=== PATIENT | male | born 1935 | race Caucasian/White ===

== ENCOUNTER 2016-03-31 10:35 | Emergency (ER) | payer BC ==
[~2016-03-31] VITALS: Ht 172.7 cm; Wt 81.3 kg
[~2016-03-31 10:35] MED LIST: AMIO200T4 PO; ATOR-24 PO; CHOL20009 PO; DIPH25CA65 PO; FRS/40 PO; MELA1TAB5 PO; NITRSPR6 SL; SIME1CAP9 PO; TPRSR/25 PO; WARF1TAB6 PO
[2016-03-31 10:46] VITALS: TEMP 36.4; Ht 172.7 cm; Wt 81.3 kg
[2016-03-31] MEDS ORDERED: TRAZ50TA35 PO (11:11)
[2016-03-31] MEDS ORDERED: NTRSLP4 SL (11:11)
--- NOTE | 2016-03-31 11:24 | EMERGENCY ROOM VISIT NOTE ---
History Report prepared by Stefano: Cayden Webster Under the Supervision of: Dr. Alberto Drew M.D. First contact with patient: 11:10 Chief Complaint: CARDIAC ASSESSMENT Stated Complaint: CARDIAC ASSESSMENT Nursing Triage Summary: Change in EKG per EMS. Denies chest pain. Denies shortness of breath. Denies nausea. History of Present Illness The patient is a 80 year old male who presents to the Emergency Room with complaints of acute EKG changes that were detected earlier today. The patient was seeing Dr. Tirado today for a routine check up. He was referred to the ED for acute EKG changes. The patient is otherwise asymptomatic. He denies chest pain or shortness of breath. He occasionally has left rib pain which he believes is musculoskeletal in nature. The patient had mitral valve surgery approximately 6 years ago at [facility]. He also has a history of atrial fibrillation and a mild stroke. The patient is on Coumadin. The patient follows up with Dr. Sherman, Dramatic Agent. The patient notes that his left leg is always more swollen than the right secondary to an infection. He uses Lasix as needed. He has an echocardiogram scheduled for April 25. Source of History: patient Onset: today Position: other (cardio) Quality: other (EKG changes) Timing: other (acute) Associated Symptoms: No SOB, No chest pain Review of Systems All systems have been listed, reviewed, and are negative other than those previously mentioned. Please see Additional Medical History Sheet. Past Medical & Surgical Medical Problems: (1) A-fib (2) TIA (transient ischemic attack) Surgical Problems: (1) H/O mitral valve repair Family History Patient reports no known family medical history. Social History Smoking Status: Never Smoker Current/Historical Medications Scheduled Amiodarone Hcl (Cordarone), 200 MG PO BID Atorvastatin (Lipitor), 40 MG PO HS Cholecalciferol (Vitamin D), 1,000 INTER.UNIT PO DAILY Melatonin (Kp Melatonin), 5 MG PO HS Metoprolol Succinate (Metoprolol Succinate ER), 25 MG PO QAM Trazodone Hcl (Trazodone), 25 MG PO HS Warfarin Sod (Jantoven), 1 MG PO 3XWK Warfarin Sod (Jantoven), 2 MG PO 4XWK Scheduled PRN Diphenhydramine Hcl (Benadryl Allergy), 25 MG PO HS PRN for Insomnia Furosemide (Lasix), Unknown Dose PO DAILY PRN for EDEMA Simethicone (Gas Relief), Unknown Dose PO UD PRN for GI Upset Miscellaneous Medications Nitroglycerin (Nitrostat), 0.4 MG SL Allergies Coded Allergies: Lisinopril (Verified Adverse Reaction, Mild, PERSISTENT COUGH, 03/31/16) Physical Exam Vital Signs Date Time Temp Pulse Resp B/P Pulse Ox O2 Delivery O2 Flow Rate FiO2 03/31/16 13:07 80 20 135/95 97 03/31/16 12:30 72 20 118/82 95 Room Air 03/31/16 10:52 Room Air 03/31/16 10:46 36.4 92 22 137/115 92 Room Air Physical Exam GENERAL: Patient awake, alert, oriented x 3. Patient follows commands. Patient does not appear toxic. Patient is adequately hydrated and well- nourished. SKIN: No erythema, pallor, cyanosis or rash HEENT: Normal head, pupils equal, reactive to light and accommodation. LUNGS: Clear to auscultation. No wheezes, no rales, no rhonchi. HEART: 2/6 systolic murmur. No gallops. No rubs ABDOMEN: Soft, nontender. EXTREMITIES: No signs of trauma. Pedal edema, 2+ on the left and 1+ on the right.. No calf or thigh tenderness. NEUROLOGIC: Cranial nerves II-XII within normal limits. No gross motor sensory function deficits. Medical Decision & Procedures ER Provider Diagnostic Interpretation: X ray results are stated below per my interpretation and the radiologist's interpretation. CHEST 2 VIEWS ROUTINE CLINICAL HISTORY: Atypical chest pain. Abnormal EKG. COMPARISON STUDY: October 10, 2013 FINDINGS: There are postsurgical changes of midline sternotomy and valvular replacement. The heart is enlarged. There is mild pulmonary vascular congestion. There are small bilateral pleural effusions. There is no lobar consolidation.[ IMPRESSION: Cardiomegaly and radiographic evidence of mild pulmonary vascular congestion. Small bilateral pleural effusions Electronically signed by: Jose Haddad M.D. 03/31/2016 12:11 PM Dictated Date/Time: 03/31/2016 12:11 PM Laboratory Results 03/31/16 11:33 03/31/16 11:33 Test 03/31/16 11:33 Red Blood Count 5.63 M/uL (4.7-6.1) Mean Corpuscular Volume 87.0 fL (80-100) Mean Corpuscular Hemoglobin 29.1 pg (25-34) Mean Corpuscular Hemoglobin Concent 33.5 g/dl (32-36) RDW Standard Deviation 50.5 fL (36.4-46.3) RDW Coefficient of Variation 16.1 % (11.5-14.5) Mean Platelet Volume 10.3 fL (7.4-10.4) Prothrombin Time 22.1 SECONDS (9.0-12.0) Prothromb Time International Ratio 2.0 (0.9-1.1) Anion Gap 6.0 mmol/L (3-11) Est Creatinine Clear Calc Drug Dose 48.3 ml/min Estimated GFR () 66.3 Estimated GFR (Non- 57.2 BUN/Creatinine Ratio 11.7 (10-20) Calcium Level 8.5 mg/dl (8.5-10.1) Total Creatine Kinase 76 U/L (39-308) Creatine Kinase MB 2.3 ng/ml (0.5-3.6) Creatine Kinase MB Ratio 3.0 (0-3.0) Troponin I 0.026 ng/ml (0-0.045) Laboratory results as stated above per my review. ECG Indication: other (abnormal EKG) Rate (beats per minute): 80 Rhythm: sinus rhythm Findings: 1st degree AV block, ST depression (V5, V6), T-wave inversion (I, AvL , AvF) Change: T wave inversions and ST depressions are new compared to previous EKGs. ED Course 1112: Past medical records reviewed. The patient was evaluated in room B6. A complete history and physical examination was performed. 1158: Spoke with Dr. Sherman, Dramatic Agent. He said the patient can be discharged if the patient remains asymptomatic and no other significant findings are found. 1240: Reassessed the patient. I explained that he can go home. He verbalized understanding and agreement. The patient is ready for discharge. Medical Decision I considered multiple diagnoses including myocardial infarction, chest wall pain , pericarditis, myocarditis, aortic emergencies, pulmonary embolism, congestive heart failure, GI causes, and other significant cardiopulmonary disorders. The patient was referred here from his family physician's office, Dr. Tirado due to a change in his EKG. The patient remains asymptomatic. Multiple labs, EKG and imaging were obtained. Please see above. The patient has no elevation of his cardiac markers. I discussed care with Dr. Sherman over the phone. He checked old versus new EKGs and felt the patient could safely return home. The patient is scheduled to have a echocardiogram done within the next month. I explained this all to the patient who understands and is in agreement. Consults Time Called: 1155 Consulting Physician: Dr. Sherman, Dramatic Agent. Returned Call: [phone]: Spoke with Dr. Sherman, Dramatic Agent. He said the patient can be discharged if the patient remains asymptomatic and no other significant findings are found. Impression Primary Impression: ST segment changes on electrocardiogram Scribe Attestation The scribe's documentation has been prepared under my direction and personally reviewed by me in its entirety. I confirm that the note above accurately reflects all work, treatment, procedures, and medical decision making performed by me. Departure Information Dispostion Home / Self-Care Referrals Lon Tirado M.D. (PCP) Forms IMPORTANT VISIT INFORMATION Patient Instructions My [facility] Additional Instructions Follow-up with Dr. Tirado and Dr. Sherman as scheduled. Follow-up with your echocardiogram as scheduled. Continue all of your current medications as prescribed.
[2016-03-31 11:43] LABS: MEAN CORPUSCULAR HEMOGLOBIN 29.1 pg (25-34); MEAN CORPUSCULAR HGB CONC 33.5 g/dl (32-36); MEAN PLATELET VOLUME 10.3 fL (7.4-10.4); PLATELET COUNT 188 K/uL (130-400); RED BLOOD COUNT 5.63 M/uL (4.7-6.1); WHITE BLOOD COUNT 7.09 K/uL (4.8-10.8)
[2016-03-31 11:52] LABS: PROTHROMBIN TIME (PATIENT) 22.1 SECONDS (9.0-12.0)
[2016-03-31 11:56] LABS: BUN/CREATININE RATIO 11.7 (10-20); CALCIUM 8.5 mg/dl (8.5-10.1); CREATININE 1.2 mg/dl (0.60-1.40); POTASSIUM 4.2 mmol/L (3.5-5.1)
--- NOTE | 2016-03-31 12:13 | DIAGNOSTIC IMAGING REPORT ---
CHEST 2 VIEWS ROUTINE CLINICAL HISTORY: Atypical chest pain. Abnormal EKG. COMPARISON STUDY: October 10, 2013 FINDINGS: There are postsurgical changes of midline sternotomy and valvular replacement. The heart is enlarged. There is mild pulmonary vascular congestion. There are small bilateral pleural effusions. There is no lobar consolidation.[ IMPRESSION: Cardiomegaly and radiographic evidence of mild pulmonary vascular congestion. Small bilateral pleural effusions Electronically signed by: Jose Haddad M.D. 03/31/2016 12:11 PM Dictated Date/Time: 03/31/2016 12:11 PM
[2016-03-31 13:07] VITALS: BP 135/95; PULSE 80; O2SAT 97
[2016-05-17] MEDS ORDERED: LOSA1TAB PO (09:44)
== END 2016-03-31 13:11 | disposition home or self-care (01) ==
LOC: EDBD 10:35 → C.EDB 10:37
DX: I44.0 Atrioventricular block, first degree (principal); I48.91 Unspecified atrial fibrillation; I34.1 Nonrheumatic mitral (valve) prolapse; Z86.73 Personal history of transient ischemic attack (TIA), and cerebral infarction without residual deficits; Z79.01 Long term (current) use of anticoagulants; Z88.8 Allergy status to other drugs, medicaments and biological substances

== ENCOUNTER → 2016-05-17 | Outpatient (CLI) | payer BC ==
[~2016-05-17] MED LIST changes: +LOSA1TAB PO; -NITRSPR6 SL; +NTRSLP4 SL; +TRAZ50TA35 PO
[2016-05-17 10:50] LABS: ALT/SGPT 49 U/L (12-78); AST/SGOT 35 U/L (15-37); BLOOD UREA NITROGEN 18 mg/dl (7-18); BUN/CREATININE RATIO 16.1 (10-20); CALCIUM 8.6 mg/dl (8.5-10.1); CARBON DIOXIDE 30 mmol/L (21-32); CHLORIDE 109 mmol/L (98-107); GLUCOSE 79 mg/dl (70-99); POTASSIUM 4.4 mmol/L (3.5-5.1); SODIUM 144 mmol/L (136-145)
[2016-05-17 10:52] LABS: ALB/GLOB RATIO 1.2 (0.9-2); ALKALINE PHOSPHATASE 118 U/L (45-117)
== END | disposition home or self-care (01) ==
LOC: C.LAB 09:54
PROVIDERS: ATTEND Physician Assistant
DX: I48.92 Unspecified atrial flutter (principal); Z51.81 Encounter for therapeutic drug level monitoring; Z79.01 Long term (current) use of anticoagulants